=== PATIENT | female | born 1960 | race Caucasian/White ===

== ENCOUNTER → 2024-06-16 | Outpatient (CLI) | payer BC, SELFPAY ==
[2024-06-16 11:17] LABS: Cardiac Risk Estimate 4.1 RATIO (3.7-5.6); Cholesterol 278 mg/dL (132-200); HDL Cholesterol 68 mg/dL (40-60); LDL Cholesterol,Calculated 183 mg/dL (0-130); Triglycerides 135 mg/dL (30-150)
== END | disposition home or self-care (01) ==
PROVIDERS: PCP Family Medicine; Referring Provider Family Medicine; Visit Provider Family Medicine
DX: E78.2 Mixed hyperlipidemia (principal)
CPT/HCPCS: 36415; 80061

== ENCOUNTER → 2024-06-28 | Outpatient (CLI) | payer BC, SELFPAY ==
--- NOTE | 2024-06-28 09:30 | XR_ITS ---
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
--- NOTE | 2024-06-28 10:00 | XR_ITS ---
Examination: Screening digital mammography, bilateral Computer aided detection 3-D breast Tomosynthesis, bilateral Date and time of exam: June 28, 2024 0946 hours No priors Indication: Screening Technique: Nonmagnified MLO, CC views of the breasts to been obtained, reconstructed from 3-D Tomosynthesis images. R2 computer aided detection program utilized for evaluation of suspicious masses and/or abnormal calcifications. 3-D Tomosynthesis images obtained. Findings: Scattered areas of fibroglandular density Benign calcifications No suspicious masses Impression: BI-RADS category II: Benign Findings. Recommend 1 year follow-up mammogram.
== END ==
PROVIDERS: PCP Family Medicine; Referring Provider Family Medicine; Visit Provider Family Medicine
DX: Z12.31 Encounter for screening mammogram for malignant neoplasm of breast (principal); R92.323 Mammographic fibroglandular density, bilateral breasts; R92.1 Mammographic calcification found on diagnostic imaging of breast; E04.2 Nontoxic multinodular goiter
CPT/HCPCS: 76536; 77063; 77067

== ENCOUNTER → 2024-08-09 | Outpatient (CLI) | payer MEDICARE, SELFPAY ==
--- NOTE | 2024-08-09 12:20 | XR_ITS ---
Examination: Bone densitometry Date and time of exam:August 09, 2024 at 1209 hours INDICATIONS: Menopause age 49, family history, mother, osteoporosis vitamin D 2 years Technique: Lumbar spine and hip total bone mineralization values of an calculated. Peak reference and age match control results have been displayed. Findings: Lumbar spine total bone mineralization is1.186 gm/cm2. This is 1.3 standard deviations above peak reference. This is 3.0 standard deviations above age-matched controls. Hip total bone mineralization is 1.127 gm/cm2 This is 1.5 standard deviations above peak reference. This is 2.7 standard deviations above age-matched controls Impression: There is normal mineralization based on lumbar spine measurements. There is normal mineralization based on hip measurements
== END | disposition home or self-care (01) ==
LOC: CDIM 11:42
PROVIDERS: PCP Family Medicine; Referring Provider Family Medicine; Visit Provider Family Medicine
DX: M81.0 Age-related osteoporosis without current pathological fracture (principal)
CPT/HCPCS: 77080

== ENCOUNTER → 2024-09-13 | Outpatient (CLI) | payer MEDICARE, SELFPAY ==
[2024-09-13 17:17] LABS: T4 (Thyroxine) 6.4 mcg/dL (4.5-10.9)
[2024-09-13 17:19] LABS: Cardiac Risk Estimate 2.8 RATIO (3.7-5.6); Cholesterol 228 mg/dL (132-200); HDL Cholesterol 81 mg/dL (40-60); LDL Cholesterol,Calculated 130 mg/dL (0-130); Thyroid Stimulating Hormone 6.95 uIU/mL (0.55-4.78); Triglycerides 87 mg/dL (30-150)
== END | disposition home or self-care (01) ==
LOC: COPL 15:15
PROVIDERS: PCP Family Medicine; Referring Provider Family Medicine; Visit Provider Family Medicine
DX: E78.2 Mixed hyperlipidemia (principal); E05.00 Thyrotoxicosis with diffuse goiter without thyrotoxic crisis or storm
CPT/HCPCS: 36415; 80061; 84436; 84443

== ENCOUNTER → 2024-09-26 | Outpatient (CLI) | payer MEDICARE, SELFPAY ==
--- NOTE | 2024-09-26 | XR_ITS ---
Examination: AP knees bilateral single view AP, lateral, axial right knee 3 views Technique: Bilateral AP knees standing single view Standing AP lateral axial right knee 3 views total 4 views Exam date and time: September 26, 2024 0753 hrs. Indications: Right knee pain beginning several years ago Findings: Moderate narrowing medial joint space left knee Moderate to advanced tricompartment osteoarthritis right knee No patellar dislocation No fracture Small right knee effusion Impression: Moderate narrowing medial joint space left knee Moderate to advanced tricompartment osteoarthritis right knee
== END | disposition home or self-care (01) ==
PROVIDERS: PCP Family Medicine; Referring Provider Orthopaedic Surgery Adult Reconstructive Orthopaedic Surgery; Visit Provider Orthopaedic Surgery Adult Reconstructive Orthopaedic Surgery
DX: M17.11 Unilateral primary osteoarthritis, right knee (principal); M25.862 Other specified joint disorders, left knee
CPT/HCPCS: 73564

== ENCOUNTER 2024-10-04 09:51 | Day surgery (SDC) | payer MEDICARE, SELFPAY ==
[2024-09-29 10:31] VITALS: BMI 39.1
--- NOTE | 2024-10-03 07:00 | EKG_ITS ---
[facility] Test Date: 2024-10-03 Pat Name: MORALES ROONEY Department: Room: - Gender: Female Senior Net Application Developer: [email or web address] : 1960 Requested By: Cecile Underwood Order Number: [id number] Reading MD: Cecile Underwood Measurements Intervals Walsh Rate: 58 P: 46 NC: 159 QRS: 7 QRSD: 109 T: 19 QT: 411 QTc: 406 Interpretive Statements SINUS BRADYCARDIA Compared to ECG 11/27/2023 02:22:40 Atrial fibrillation no longer present ST (T wave) deviation no longer present /store/S0/[id number]/ecg/[id number].pdf
[2024-10-03 11:55] LABS: Basophils # (Auto) 0.1 Thou/mm3 (0.0-0.2); Basophils % (Auto) 1 % (0-2.5); Eosinophils # (Auto) 0.2 Thou/mm3 (0.0-0.5); Eosinophils % (Auto) 4 % (0-10); Hematocrit 43.6 % (36.0-46.0); Hemoglobin 14.5 g/dL (12.0-16.0); Immature Granulocytes % (Auto) 0 % (0-0); Immature Granulocytes Auto 0.01 Thou/mm3 (0.00-0.00); Lymphocytes % (Auto) 37 % (10-50); Mean Corpuscular HGB Conc 33.3 g/dl (31.0-37.0); Mean Corpuscular Hemoglobin 30.6 pg (25.0-35.0); Mean Corpuscular Volume 92 fL (80-100); Monocytes # (Auto) 0.3 Thou/mm3 (0.0-0.8); Monocytes % (Auto) 6 % (0-12); Neutrophils # (Auto) 2.8 Thou/mm3 (1.8-7.7); Neutrophils % (Auto) 52 % (37-80); Nucleated Red Blood Cell % 0 /100 WBC (0); Platelet Count 216 Thou/mm3 (140-440); RDW Standard Deviation 44.5 fL (36.4-46.3); Red Blood Count 4.74 Miln/mm3 (4.00-5.20); White Blood Count 5.4 Thou/mm3 (3.6-11.0)
[2024-10-03 12:02] LABS: INR 0.9 (0.9-1.3); Partial Thromboplastin Time 27.4 Seconds (22.0-36.0); Prothrombin Time 10.4 Seconds (9.0-12.2)
[2024-10-03 12:06] LABS: Anion Gap 9 (7-16); BUN/Creatinine Ratio 20 Ratio (12-20); Blood Urea Nitrogen 16 mg/dL (9-23); Calcium 9.8 mg/dL (8.3-10.6); Carbon Dioxide 24.1 mMol/L (20.0-31.0); Chloride 108 mMol/L (98-107); Creatinine (Component) 0.8 mg/dL (0.6-1.3); Glucose 88 mg/dL (74-106); Osmolality,Calculated 281 (275-295); Potassium 4.7 mMol/L (3.4-5.1); Sodium 141 mMol/L (136-145); eGFR > 60 See Note
[2024-10-04] VITALS (14 sets, daily range): BP systolic 105–149; BP diastolic 65–94; PULSE 57–79; RESP 13–20; TEMP 36.1–36.9; O2SAT 92–96; BMI 41.5
[2024-10-04] MEDS: SODIUM CHLORIDE 0.9% 100 ML IV (12:15)
--- NOTE | 2024-10-04 14:06 | ESOP_ITS ---
RE: MORALES ROONEY : 1960 DATE OF OPERATION: 10/04/2024 PROCEDURE PERFORMED: 1. Diagnostic left heart cardiac catheterization, selective coronary angiogram and left ventricular angiogram, CPT 75760. 2. Conscious sedation, 30 minute duration. 3. Ultrasound-guided access, right radial artery. DIAGNOSES: Coronary artery disease, abnormal stress test, atrial fibrillation, and Graves' disease. HISTORY AND INDICATIONS: The patient is a 64-year-old female with a history of multinodular hypertension, hyperthyroidism, Graves' disease, AFib with RVR, history of previous stroke on anticoagulation and has been doing well until recently. She has had recurrent chest tightness, shortness of breath. Coronary angiogram was recommended because of abnormal nuclear stress test. DESCRIPTION OF PROCEDURE: The patient was brought to cardiac catheterization laboratory. She was given to conscious sedation 2 mg Versed and 100 mcg of fentanyl sedation. Right radial approach was taken. Right radial artery cannulated with micropuncture technique. A 6-Honduran [place] sheath was introduced. Selective right and left heart cardiac catheterization performed by TIG-4 diagnostic catheter. Left heart catheterization and LV angiogram performed by TIG-4 diagnostic catheter. Cardiac catheter showed following findings. Hemodynamics: Left ventricular pressure 110/10. Aortic pressure 110/70. No gradient across the aortic valve. Left ventricular angiogram showed normal left ventricular wall motion, ejection fraction 70%. Coronary angiogram showed following findings. Right coronary artery is large and dominant, appeared normal. PDA and PL branch is normal. Left coronary system. Left main coronary artery is normal. Left anterior descending artery is normal. Circumflex artery is normal. SUMMARY AND FINDINGS: 1. Normal, nonobstructive epicardial coronary arteries. 2. Normal left ventricular systolic function, ejection fraction 70%. RECOMMENDATIONS: The patient will be reassured about the absence of significant obstructive coronary artery disease with excellent prognosis. Recommend continued medical management. Prognosis is excellent. DT: 13:31:59 TT: 14:04:00 Ref: [id number] - TID: [id number]
--- NOTE | 2024-10-04 15:23 | PC.NURSE ---
1253 patient is awake, alert, breathing unlabored, s/p LHC by Dr. Mejias, TR band to right wrist, no bleeding or hematoma noted, report received from harley ELIZALDE, patient to recover for 3hrs and resume eliquis tomorrow. 1405 Tr band removed, no bleeding or hematoma noted. 1517 patient is awake, alert, breathing unlabored, dressing dry with no bleeding or hematoma, patient able to ambulate to bathroom and void, meets discharge criteria, discharge instructions given to patient and family, patient discharted home in wheelchair with all belongings.
== END 2024-10-04 15:17 | disposition home or self-care (01) ==
PROVIDERS: PCP Family Medicine; Referring Provider Internal Medicine Cardiovascular Disease; Visit Provider Internal Medicine Cardiovascular Disease
PROC: (CPT 93458; principal; 2024-10-04 11:30)
DX: I25.118 Atherosclerotic heart disease of native coronary artery with other forms of angina pectoris (principal); E05.00 Thyrotoxicosis with diffuse goiter without thyrotoxic crisis or storm; I10 Essential (primary) hypertension; I48.91 Unspecified atrial fibrillation; Z86.73 Personal history of transient ischemic attack (TIA), and cerebral infarction without residual deficits; Z01.810 Encounter for preprocedural cardiovascular examination
CPT/HCPCS: 93458; 36415; 80048; 85025; 85610; 85730; 93005; 99152; 99153; A4649; C1769; C1887; C1894; J0171; J0461; J1643; J2250; J2310; J2371; J3010; J3490; J7030; Q9967; J2305

== ENCOUNTER → 2024-10-13 | Outpatient (CLI) | payer MEDICARE, SELFPAY ==
[2024-10-13 13:34] LABS: Free T4 (Free Thyroxine) 1.06 ng/dL (0.89-1.76); Thyroid Stimulating Hormone 5.69 uIU/mL (0.55-4.78)
== END | disposition home or self-care (01) ==
LOC: COPL 12:18
PROVIDERS: PCP Family Medicine; Referring Provider Family Medicine; Visit Provider Family Medicine
DX: E05.90 Thyrotoxicosis, unspecified without thyrotoxic crisis or storm (principal)
CPT/HCPCS: 36415; 84439; 84443

== ENCOUNTER 2024-11-01 09:53 | Outpatient (AMB) | payer MEDICARE, SELFPAY ==
[2024-11-01 10:06] VITALS: BP 119/67; PULSE 74; RESP 18; TEMP 36.6; O2SAT 92; BMI 40.6
--- NOTE | 2024-11-01 10:06 | ORTHONT_ITS ---
Vital signs 11/01/24 10:06 Height 1.63 m Height Method Stated Weight 107.558 kg Weight Measurement Method Standing Scale BMI 40.6 BP 119/67 Blood Pressure Source Automatic Cuff Blood Pressure Location Left Upper Arm Position Sitting Respiration 18 Pulse 74 Pulse Source Monitor Temp 97.8 F Temp Source Temporal Artery Scan Pulse Oximetry (%) 92 L Oxygen Delivery Method Room Air Med/Allergies Allergies & Medications Allergies No Known Allergies Allergy (Verified 11/01/24 10:07) Medication Reconciliation diltiazem HCl 120 mg capsule,extended release 24 hr (Cardizem CD) 120 mg PO QAM #14 caps 11/27/23 [Rx Confirmed 11/01/24] apixaban 5 mg PO BID 10/04/24 [History Confirmed 11/01/24] Held on 10/04/24. Instructions: Resume on 10/05/24. please Resume eliquis 10/05/24 as directed. ezetimibe 10 mg tablet 10 mg PO QDAY 10/04/24 [History Confirmed 11/01/24] methimazole 5 mg tablet 5 mg PO BID 10/04/24 [History Confirmed 11/01/24] meloxicam 7.5 mg tablet 7.5 mg PO QDAY #45 tabs 11/01/24 [Rx] Exam Exam Breathing is nonlabored. Patient has a normal mood and affect. Bilateral extremities were evaluated and demonstrates sensation intact to light touch. Palpable pedal pulses are present. No significant edema is present. Bilateral hips were examined. The patient has no pain with log roll of the hips. Internal rotation to 30 degrees and external rotation to 30 degrees is painless. Negative FADIR. Left knee was examined today. The left knee is in reasonable alignment. Range of motion from 0-120 degrees. Knee is stable to varus and valgus as well as AP translation with <5mm. Patient has a negative McMurrays. There is no pain with patellofemoral compression and no crepitus noted. The knee is nontender to palpation. The right knee was also examined. The right knee is in varus alignment. Range of motion from 0-115 degrees. Knee is stable to varus and valgus as well as AP translation with <5mm. Patient has a negative McMurrays. There is no pain with patellofemoral compression and no crepitus noted. The knee is tender to palpation medially. X-rays demonstrate mild to moderate arthritis Assessment and Plan Problem List (1) Arthritis of knee, right: Status: Acute Plan: Patient is a pleasant 64-year-old female with right knee pain and right knee arthritis. We discussed different treatment options. She has mild to moderate arthritis we recommend anti-inflammatories for now. We discussed we can do injections if the pain were to worse Advanced Care Planning Discussion Advance care planning discussed with:: patient Office Procedures GNS Level of Care Nursing/Assessment Patient Status: Initial/New Patient Nursing Assessment/Reassesment: Medication Reconciliation, Update PMH in EMR and Vital Signs Coordination of Care: Complex Care and Chronic Disease 1-5, Education Complex Pt/Fam, Consent,records obtained, informed consent, 1 Ins Authorization, Lab and Imaging orders, Results/Orders obtained and Staff clarify orders New Patient Charge New Patient Point Assignment: 1124 New Patient Point Charge: ENGINE TEST CELL TECHNICIAN Level 4 ([id number]) MA Intake Visit Data Collection New Patient or Established: New Patient (never been to [facility]) Reason for Visit:: RIGHT KNEE PAIN Seen by Clinical Staff ONLY (RN/MA): No PCP or OBGYN visit in last 3 months: Yes Hx Now: No Do You Feel Safe at Home: Yes Authorities Contacted: N/A Questionairres Past Medical History Past Medical History Have you ever been diagnosed with any of the following: Neurological Problems Cerebrovascular Accident (CVA): Yes (2017 Right side fingers numb and right side mouth numbness) Cardiology Problems Atrial Fibrillation: No (hospitalized for a fib but ruled out) Congestive Heart Failure: No Respiratory Problems Chronic Obstructive Pulmonary Disease (COPD): No Asthma: Yes (over 10 years) Smoking: No Smoking Cessation Counseling: No Smoking Exposure: No Genital/Urinary Problems Renal Disease: No Kidney Stones: Yes (over 10 years ago) Endocrine Problems Diabetes Mellitus Type 1: No Diabetes Mellitus Type 2: No Hyperthyroidism: Yes Other Problems Blood Transfusions: No Anesthesia Reactions: No Subjective Visit Visit for: new patient and knee (RIGHT) Immunization / Flu Flu Vaccine in the Last 12 Months: No Flu Vaccine Exclusion Criteria: Refused by Patient History of Present Illness Chief complaint: Right knee pain Monisha is a pleasant 64-year-old female with right knee and right knee arthritis. This has been ongoing for quite a while. It is intermittent. The pain has actually resolved Recently. She takes ibuprofen has not had any injections Pain Pain level (0-10): 0 Pain location: posterior Associated signs & symptoms: none Ambulatory data Ambulatory device: none Treatments Improvement with previous injections: No Improvement with PT: No Improvement with NSAIDS: no Review of Systems Review of Systems: All systems negative unless otherwise noted in HPI.
== END 2024-11-01 10:27 | disposition home or self-care (01) ==
LOC: HODSRG 09:53
PROVIDERS: PCP Family Medicine; Referring Provider Family Medicine; Supervising Provider Orthopaedic Surgery Adult Reconstructive Orthopaedic Surgery; Visit Provider Orthopaedic Surgery Adult Reconstructive Orthopaedic Surgery
DX: M17.11 Unilateral primary osteoarthritis, right knee (principal); M25.561 Pain in right knee; Z86.73 Personal history of transient ischemic attack (TIA), and cerebral infarction without residual deficits
CPT/HCPCS: 99204; G0463

== ENCOUNTER 2025-01-03 13:46 | Outpatient (AMB) | payer MEDICARE, SELFPAY ==
[2025-01-03 13:55] VITALS: BP 137/84; PULSE 75; RESP 18; TEMP 36.4; O2SAT 96; BMI 40.0
--- NOTE | 2025-01-03 13:55 | PD.ORTHCLVIS ---
Vital signs 01/03/25 13:55 Height 1.63 m Height Method Stated Weight 106.339 kg Weight Measurement Method Standing Scale BMI 40.0 BP 137/84 H Blood Pressure Source Automatic Cuff Blood Pressure Location Right Upper Arm Position Sitting Respiration 18 Pulse 75 Pulse Source Monitor Temp 97.6 F Temp Source Temporal Artery Scan Pulse Oximetry (%) 96 Oxygen Delivery Method Room Air Med/Allergies Allergies & Medications Allergies No Known Allergies Allergy (Verified 01/03/25 13:56) Medication Reconciliation diltiazem HCl 120 mg capsule,extended release 24 hr (Cardizem CD) 120 mg PO QAM #14 caps 11/27/23 [Rx Confirmed 01/03/25] apixaban 5 mg PO BID 10/04/24 [History Confirmed 01/03/25] Held on 10/04/24. Instructions: Resume on 10/05/24. please Resume eliquis 10/05/24 as directed. ezetimibe 10 mg tablet 10 mg PO QDAY 10/04/24 [History Confirmed 01/03/25] methimazole 5 mg tablet 5 mg PO BID 10/04/24 [History Confirmed 01/03/25] meloxicam 7.5 mg tablet 7.5 mg PO QDAY #45 tabs 11/01/24 [Rx Confirmed 01/03/25] Exam Exam Breathing is nonlabored. Patient has a normal mood and affect. Bilateral extremities were evaluated and demonstrates sensation intact to light touch. Palpable pedal pulses are present. No significant edema is present. Bilateral hips were examined. The patient has no pain with log roll of the hips. Internal rotation to 30 degrees and external rotation to 30 degrees is painless. Negative FADIR. Left knee was examined today. The left knee is in reasonable alignment. Range of motion from 0-120 degrees. Knee is stable to varus and valgus as well as AP translation with <5mm. Patient has a negative McMurrays. There is no pain with patellofemoral compression and no crepitus noted. The knee is nontender to palpation. The right knee was also examined. The right knee is in varus alignment. Range of motion from 0-115 degrees. Knee is stable to varus and valgus as well as AP translation with <5mm. Patient has a negative McMurrays. There is no pain with patellofemoral compression and no crepitus noted. The knee is tender to palpation medially. X-rays demonstrate mild to moderate arthritis Assessment and Plan Problem List (1) Arthritis of knee, right: Status: Acute Plan: Patient is a pleasant 64-year-old female with right knee pain and right knee arthritis. We discussed different treatment options. She has mild to moderate arthritis we recommend anti-inflammatories for now. She would also like to try a cortisone injection today Recommend knee cortisone injection as patient would like to proceed with conservative treatment at this time. The risks and benefits of the procedure were reviewed with the patient and patient gave verbal consent to continue with the procedure. Procedure: performed by Dr. Wray Using sterile technique the Right knee was thoroughly prepped with alcohol, and approximately 1 cc of Kenalog 40 mg/mL and 4 cc of 1% lidocaine was injected without resistance into the medial tibial femoral joint space. The patient tolerated the procedure. Advanced Care Planning Discussion Advance care planning discussed with:: patient Office Procedures GNS Level of Care Nursing/Assessment Patient Status: Established Patient Nursing Assessment/Reassesment: Medication Reconciliation, Update PMH in EMR and Vital Signs Coordination of Care: Complex Care and Chronic Disease 1-5, Education Complex Pt/Fam, Consent,records obtained, informed consent, Results/Orders obtained and Staff clarify orders Established Patient Charge Established Patient Point Assignment: 95 Established Patient Point Charge: EP Level 3 (80-115) Surgical Proc/IM SQ injection Major Surgical Procedure: Yes (KNEE INJECTION ) MA Intake Visit Data Collection New Patient or Established: Established Patient (seen at [facility] within 3 years) Reason for Visit:: KNEE INJECTIONS Seen by Clinical Staff ONLY (RN/MA): No Verbal consent obtained for Telemed visit?: No Forestry Support Specialist Required: No PCP or OBGYN visit in last 3 months: Yes Hx Now: No Do You Feel Safe at Home: Yes Authorities Contacted: N/A Questionairres Past Medical History Past Medical History Have you ever been diagnosed with any of the following: Neurological Problems Cerebrovascular Accident (CVA): Yes (2018 Right side fingers numb and right side mouth numbness) Cardiology Problems Atrial Fibrillation: No (hospitalized for a fib but ruled out) Congestive Heart Failure: No Respiratory Problems Chronic Obstructive Pulmonary Disease (COPD): No Asthma: Yes (over 10 years) Smoking: No Smoking Cessation Counseling: No Smoking Exposure: No Genital/Urinary Problems Renal Disease: No Kidney Stones: Yes (over 10 years ago) Endocrine Problems Diabetes Mellitus Type 1: No Diabetes Mellitus Type 2: No Hyperthyroidism: Yes Other Problems Blood Transfusions: No Anesthesia Reactions: No Subjective Visit Visit for: follow up visit and knee Immunization / Flu Flu Vaccine in the Last 12 Months: No Flu Vaccine Exclusion Criteria: No Exclusion Criteria History of Present Illness Chief complaint: KNEE INJECTION Monisha is a pleasant 64-year-old female with right knee and right knee arthritis. This has been ongoing for quite a while. She would like a right knee injection today Personal History Red flag PMH: BMI BMI Counceling provided: Yes Pain Pain level (0-10): 4 Pain duration: ALL DAY Pain location: anterior and posterior Pain quality: sharp, dull and aching Pain timing: increases with activity Associated signs & symptoms: none Ambulatory data Ambulatory device: none Treatments Improvement with previous injections: Yes Improvement with PT: No Improvement with NSAIDS: no Review of Systems Review of Systems: All systems negative unless otherwise noted in HPI.
== END 2025-01-03 14:04 | disposition home or self-care (01) ==
LOC: HODSRG 13:46
PROVIDERS: PCP Family Medicine; Referring Provider Family Medicine; Supervising Provider Orthopaedic Surgery Adult Reconstructive Orthopaedic Surgery; Visit Provider Orthopaedic Surgery Adult Reconstructive Orthopaedic Surgery
DX: M17.11 Unilateral primary osteoarthritis, right knee (principal); M25.561 Pain in right knee; Z86.73 Personal history of transient ischemic attack (TIA), and cerebral infarction without residual deficits
CPT/HCPCS: 20610; 99213; J3301; J3490; G0463

== ENCOUNTER → 2025-01-31 | Outpatient (CLI) | payer MEDICARE, SELFPAY ==
[2025-01-31 12:12] LABS: Free T4 (Free Thyroxine) 1.25 ng/dL (0.89-1.76); Thyroid Stimulating Hormone 2.25 uIU/mL (0.55-4.78)
== END | disposition home or self-care (01) ==
LOC: COPL 11:21
PROVIDERS: PCP Family Medicine; Referring Provider Family Medicine; Visit Provider Family Medicine
DX: E05.90 Thyrotoxicosis, unspecified without thyrotoxic crisis or storm (principal)
CPT/HCPCS: 36415; 84439; 84443

== ENCOUNTER 2025-03-23 07:58 | Outpatient (AMB) | payer MEDICARE, SELFPAY ==
--- NOTE | 2025-03-23 08:08 | PD.ORTHCLVIS ---
Vital signs 03/23/25 08:09 Height 1.63 m Height Method Stated Weight 112.066 kg Weight Measurement Method Standing Scale BMI 42.1 BP 119/78 Blood Pressure Source Automatic Cuff Blood Pressure Location Left Upper Arm Position Sitting Respiration 18 Pulse 72 Pulse Source Monitor Temp 97.5 F Temp Source Temporal Artery Scan Pulse Oximetry (%) 95 Oxygen Delivery Method Room Air Med/Allergies Allergies & Medications Allergies No Known Allergies Allergy (Verified 03/23/25 08:10) Medication Reconciliation diltiazem HCl 120 mg capsule,extended release 24 hr (Cardizem CD) 120 mg PO QAM #14 caps 11/27/23 [Rx Confirmed 03/23/25] apixaban 5 mg PO BID 10/04/24 [History Confirmed 03/23/25] Held on 10/04/24. Instructions: Resume on 10/05/24. please Resume eliquis 10/05/24 as directed. ezetimibe 10 mg tablet 10 mg PO QDAY 10/04/24 [History Confirmed 03/23/25] methimazole 5 mg tablet 5 mg PO BID 10/04/24 [History Confirmed 03/23/25] meloxicam 7.5 mg tablet 7.5 mg PO QDAY #45 tabs 03/23/25 [Rx] Exam Exam Breathing is nonlabored. Patient has a normal mood and affect. Bilateral extremities were evaluated and demonstrates sensation intact to light touch. Palpable pedal pulses are present. No significant edema is present. Bilateral hips were examined. The patient has no pain with log roll of the hips. Internal rotation to 30 degrees and external rotation to 30 degrees is painless. Negative FADIR. Left knee was examined today. The left knee is in reasonable alignment. Range of motion from 0-120 degrees. Knee is stable to varus and valgus as well as AP translation with <5mm. Patient has a negative McMurrays. There is no pain with patellofemoral compression and no crepitus noted. The knee is nontender to palpation. The right knee was also examined. The right knee is in varus alignment. Range of motion from 0-115 degrees. Knee is stable to varus and valgus as well as AP translation with <5mm. Patient has a negative McMurrays. There is no pain with patellofemoral compression and no crepitus noted. The knee is tender to palpation medially. X-rays demonstrate mild to moderate arthritis Assessment and Plan Problem List (1) Arthritis of knee, right: Status: Acute Plan: Patient is a pleasant 64-year-old female with right knee pain and right knee arthritis. We discussed different treatment options. She has mild to moderate arthritis we recommend anti-inflammatories for now. She would also like to try a cortisone injection today Recommend knee hyaluronic acid injection as patient would like to proceed with conservative treatment at this time. The risks and benefits of the procedure were reviewed with the patient and patient gave verbal consent to continue with the procedure. Procedure: performed by Dr. Wray Using sterile technique the Right knee was thoroughly prepped with alcohol, and the entire syringe of Synvisc 1 was injected without resistance into the medial tibial femoral joint space. The patient tolerated the procedure. Advanced Care Planning Discussion Advance care planning discussed with:: patient Office Procedures GNS Level of Care Nursing/Assessment Patient Status: Established Patient Nursing Assessment/Reassesment: Medication Reconciliation, Update PMH in EMR and Vital Signs Coordination of Care: Complex Care and Chronic Disease 1-5, Education Complex Pt/Fam, Consent,records obtained, informed consent, Results/Orders obtained and Staff clarify orders Established Patient Charge Established Patient Point Assignment: 95 Established Patient Point Charge: EP Level 3 (80-115) Surgical Proc/IM SQ injection Major Surgical Procedure: Yes (KNEE INJECTION ) Medication Given Medication Given Medication Given: Yes Documented Dose Given: 1 Route: Infiitration Office Meds Hyalgan 10 mg/mL intra-articular syringe Performing Provider: Fox Wray MD Performing Location: [facility] Administered by: Fox Wray MD on 03/23/25 08:50 Dose Route Admin Location Dispensed Lot Number Expiration Date [facility] Senior Hadoop Developer 20 mg intra-articular KNEE 20 mL [id number] 10/01/27 [id number] MA Intake Visit Data Collection New Patient or Established: Established Patient (seen at [facility] within 3 years) Reason for Visit:: RIGHT KNEE PAIN INJ 01/2025 Seen by Clinical Staff ONLY (RN/MA): No Verbal consent obtained for Telemed visit?: No Reading Professor Required: No PCP or OBGYN visit in last 3 months: Yes Hx Now: No Do You Feel Safe at Home: Yes Authorities Contacted: N/A Questionairres Past Medical History Past Medical History Have you ever been diagnosed with any of the following: Neurological Problems Cerebrovascular Accident (CVA): Yes (2018 Right side fingers numb and right side mouth numbness) Cardiology Problems Atrial Fibrillation: No (hospitalized for a fib but ruled out) Congestive Heart Failure: No Respiratory Problems Chronic Obstructive Pulmonary Disease (COPD): No Asthma: Yes (over 10 years) Smoking: No Smoking Cessation Counseling: No Smoking Exposure: No Stomache/Intestinal Problems Liver Cancer: No Hepatitis: No Cirrhosis: No Pancreatic Cancer: No Pancreatitis: No Celiac Disease: No Gall Bladder Disease: No Gastrointestinal Bleed: No Esophageal Varices: No Cordero's Esophagus: No Colitis: No Ulcerative Colitis: No Diverticulitis: No Diverticulosis: No Ulcer: No Colorectal Cancer: No Irritable Bowel: No Crohn's Disease: No Obstructive Bowel: No Hiatal Hernia: No Hemorrhoids: No Gastroesophageal Reflux Disease: No Polyps: No Obesity: No Genital/Urinary Problems Chronic Kidney Disease: No Renal Disease: No Kidney Stones: Yes (over 10 years ago) Polycystic Kidney Disease: No Neurogenic Bladder: No Inguinal Hernia: No Dialysis: No Reproductive Problems Breast Cancer: No Endometriosis: No Fibroids: No Genital Herpes: No Gonorrhea: No Pelvic Inflammatory Disease: No Polycystic Ovarian Syndrome: No Previous Pregnancies: No Syphilis: No Uterine Prolapse: No Musculoskeletal Problems Muscular Dystrophy: No Myasthenia Gravis: No Marfan's Syndrome: No Bone Cancer: No Arthritis: No Rheumatoid Arthritis: No Osteoporosis: No Degenerative Disk Disease: No Gout: No Scoliosis: No Carpal Tunnel Syndrome: No Fibromyalgia: No Fractures: No Degenerative Joint Disease: No Osteomyelitis: No Poliovirus: No Head,Eye,Nose,Throat Problems Cataracts: No Glaucoma: No Blind: No Retinal Detachment: No Macular Degeneration: No Chronic Ear Infections: No Deafness: No Eye Prosthesis: No Endocrine Problems Diabetes Mellitus Type 1: No Diabetes Mellitus Type 2: No Hypoglycemia: No Lora's Syndrome: No Morris's Disease: No Hyperthyroidism: Yes Hypothyroidism: No Thyroid Cancer: No Parathyroid Disease: No Pituitary Disease: No Systemic Lupus Erythematosus: No Syndrome of Inappropriate Antidiuretic Hormone: No Adrenal Disease: No Graves' Disease: No Blood Problems Anemia: No Leukemia: No Hemophilia: No Thalassemia: No Sickle Cell Disease: No Clotting Problems: No Psychologic Problems Schizophrenia: No Recreational Drug Use: No Bipolar Disorder: No Depression: No Anxiety: No Behavior Problems: No Self-Mutilation: No Attention Deficit Disorder: No Attention Deficit Hyperactivity Disorder: No Depression: No Post Traumatic Stress Disorder: No Eating Disorder: No Other Problems Blood Transfusions: No Anesthesia Reactions: No Subjective Visit Visit for: follow up visit, knee and injections Immunization / Flu Flu Vaccine in the Last 12 Months: No Flu Vaccine Exclusion Criteria: No Exclusion Criteria History of Present Illness Chief complaint: RIGHT KNEE PAIN Monisha is a pleasant 64-year-old female with right knee and right knee arthritis. This has been ongoing for quite a while. The last injection only provided short-term relief. Will try different injection today. She would like to try hyaluronic acid injection. Personal History Red flag PMH: BMI BMI Counceling provided: Yes Pain Pain level (0-10): 6 Pain duration: ALL DAY Pain location: anterior and posterior Pain quality: sharp, dull and aching Pain timing: increases with activity Associated signs & symptoms: none Ambulatory data Ambulatory device: none Treatments Number of previous injections: 1 Improvement with previous injections: No Improvement with PT: No Improvement with NSAIDS: no Review of Systems Review of Systems: All systems negative unless otherwise noted in HPI.
[2025-03-23 08:09] VITALS: BP 119/78; PULSE 72; RESP 18; TEMP 36.4; O2SAT 95; BMI 42.1
== END 2025-03-23 08:39 | disposition home or self-care (01) ==
LOC: HODSRG 07:58
PROVIDERS: PCP Family Medicine; Referring Provider Family Medicine; Supervising Provider Orthopaedic Surgery Adult Reconstructive Orthopaedic Surgery; Visit Provider Orthopaedic Surgery Adult Reconstructive Orthopaedic Surgery
DX: M17.11 Unilateral primary osteoarthritis, right knee (principal); M25.561 Pain in right knee; Z86.73 Personal history of transient ischemic attack (TIA), and cerebral infarction without residual deficits; Z87.442 Personal history of urinary calculi
CPT/HCPCS: 20610; 99213; G0463; J7325

== ENCOUNTER 2025-04-12 08:50 | Day surgery (SDC) | payer MEDICARE, SELFPAY ==
[2025-04-12] VITALS (9 sets, daily range): BP systolic 104–143; BP diastolic 59–85; PULSE 68–88; RESP 13–20; TEMP 36.2; O2SAT 95–98; BMI 40.1
[2025-04-12] MEDS: SODIUM CHLORIDE 0.9% 500 ML 500 ML 20 ML IV (10:11)
[2025-04-12] MEDS: MIDAZOLAM INJ 1 MG/ML VIAL 2 ML (ASD USE ONLY) 2 MG IVP (10:17)
[2025-04-12] MEDS: fentaNYL CIT INJ 50 mCg/ML AMP 2ML (ASD USE ONLY) IVP (10:17)
== END 2025-04-12 11:05 | disposition home or self-care (01) ==
PROVIDERS: PCP Family Medicine; Referring Provider Specialist; Visit Provider Specialist
PROC: 0DBE8ZX Excision of Large Intestine, Via Natural or Artificial Opening Endoscopic, Diagnostic (ICD-10-PCS; CPT 45380; principal; 2025-04-12 09:45)
DX: Z12.11 Encounter for screening for malignant neoplasm of colon (principal); K64.9 Unspecified hemorrhoids; K57.30 Diverticulosis of large intestine without perforation or abscess without bleeding
CPT/HCPCS: G0121; A4649; J1200; J2250; J3010; J7999

== ENCOUNTER 2025-04-20 07:59 | Outpatient (AMB) | payer MEDICARE, SELFPAY ==
--- NOTE | 2025-04-20 08:10 | ORTHONT_ITS ---
Vital signs 04/20/25 08:15 Height 1.63 m Height Method Measured Weight 107.133 kg Weight Measurement Method Standing Scale BMI 40.3 BP 114/74 Blood Pressure Source Automatic Cuff Blood Pressure Location Left Upper Arm Position Sitting Respiration 20 Pulse 73 Pulse Source Monitor Temp 97.3 F Temp Source Temporal Artery Scan Pulse Oximetry (%) 95 Oxygen Delivery Method Room Air Med/Allergies Allergies & Medications Allergies No Known Allergies Allergy (Verified 04/20/25 08:17) Medication Reconciliation methimazole 5 mg tablet 5 mg PO BID 10/04/24 [History Confirmed 04/20/25] meloxicam 7.5 mg tablet 7.5 mg PO QDAY #45 tabs 03/23/25 [Rx Confirmed 04/20/25] Exam Exam Breathing is nonlabored. Patient has a normal mood and affect. Bilateral extremities were evaluated and demonstrates sensation intact to light touch. Palpable pedal pulses are present. No significant edema is present. Bilateral hips were examined. The patient has no pain with log roll of the hips. Internal rotation to 30 degrees and external rotation to 30 degrees is painless. Negative FADIR. Left knee was examined today. The left knee is in reasonable alignment. Range of motion from 0-120 degrees. Knee is stable to varus and valgus as well as AP translation with <5mm. Patient has a negative McMurrays. There is no pain with patellofemoral compression and no crepitus noted. The knee is nontender to palpation. The right knee was also examined. The right knee is in varus alignment. Range of motion from 0-115 degrees. Knee is stable to varus and valgus as well as AP translation with <5mm. Patient has a negative McMurrays. There is no pain with patellofemoral compression and no crepitus noted. The knee is tender to palpation medially. X-rays demonstrate mild to moderate arthritis Assessment and Plan Problem List (1) Arthritis of knee, right: Status: Acute Plan: Patient is a pleasant 64-year-old female with right knee pain and right knee arthritis. We discussed different treatment options. She has mild to moderate arthritis we recommend anti-inflammatories for now. She is doing well and can see me on as needed basis Advanced Care Planning Discussion Advance care planning discussed with:: patient Office Procedures GNS Level of Care Nursing/Assessment Patient Status: Established Patient Nursing Assessment/Reassesment: Medication Reconciliation, Update PMH in EMR and Vital Signs Coordination of Care: Complex Care and Chronic Disease 1-5, Education Complex Pt/Fam, Consent,records obtained, informed consent, Results/Orders obtained and Staff clarify orders Established Patient Charge Established Patient Point Assignment: 95 Established Patient Point Charge: EP Level 3 (80-115) MA Intake Visit Data Collection New Patient or Established: Established Patient (seen at [facility] within 3 years) Reason for Visit:: RIGHT KNEE GEL INJECTION Seen by Clinical Staff ONLY (RN/MA): No Verbal consent obtained for Telemed visit?: No Type Disk Quality Control Supervisor Required: No PCP or OBGYN visit in last 3 months: Yes Hx Now: No Do You Feel Safe at Home: Yes Authorities Contacted: N/A Questionairres Past Medical History Past Medical History Have you ever been diagnosed with any of the following: Neurological Problems Cerebrovascular Accident (CVA): Yes (2018 Right side fingers numb and right side mouth numbness) Seizures: No Cardiology Problems Cardiac Arrhythmia: Yes Atrial Fibrillation: No (hospitalized for a fib but ruled out, Palpitations) Congestive Heart Failure: No Respiratory Problems Chronic Obstructive Pulmonary Disease (COPD): No Asthma: Yes (over 10 years) Smoking: No Smoking Cessation Counseling: No Smoking Exposure: No Stomache/Intestinal Problems Liver Cancer: No Hepatitis: No Cirrhosis: No Pancreatic Cancer: No Pancreatitis: No Celiac Disease: No Gall Bladder Disease: No Gastrointestinal Bleed: No Esophageal Varices: No Cordero's Esophagus: No Colitis: No Ulcerative Colitis: No Diverticulitis: No Diverticulosis: No Ulcer: No Colorectal Cancer: No Irritable Bowel: No Crohn's Disease: No Obstructive Bowel: No Hiatal Hernia: No Hemorrhoids: No Gastroesophageal Reflux Disease: No Polyps: No Obesity: No Genital/Urinary Problems Chronic Kidney Disease: No Renal Disease: No Kidney Stones: Yes (over 10 years ago) Polycystic Kidney Disease: No Neurogenic Bladder: No Inguinal Hernia: No Dialysis: No Reproductive Problems Breast Cancer: No Endometriosis: No Fibroids: No Genital Herpes: No Gonorrhea: No Pelvic Inflammatory Disease: No Polycystic Ovarian Syndrome: No Previous Pregnancies: No Syphilis: No Uterine Prolapse: No Musculoskeletal Problems Muscular Dystrophy: No Myasthenia Gravis: No Marfan's Syndrome: No Bone Cancer: No Arthritis: Yes (Right knee arthtitis) Rheumatoid Arthritis: No Osteoporosis: No Degenerative Disk Disease: No Gout: No Scoliosis: No Carpal Tunnel Syndrome: No Fibromyalgia: No Fractures: No Degenerative Joint Disease: No Osteomyelitis: No Poliovirus: No Head,Eye,Nose,Throat Problems Cataracts: No Glaucoma: No Blind: No Retinal Detachment: No Macular Degeneration: No Chronic Ear Infections: No Deafness: No Eye Prosthesis: No Endocrine Problems Diabetes Mellitus Type 1: No Diabetes Mellitus Type 2: No Hypoglycemia: No Beverly's Syndrome: No Coldiron's Disease: No Hyperthyroidism: Yes Hypothyroidism: No Thyroid Cancer: No Parathyroid Disease: No Pituitary Disease: No Systemic Lupus Erythematosus: No Syndrome of Inappropriate Antidiuretic Hormone: No Adrenal Disease: No Graves' Disease: No Blood Problems Anemia: No Leukemia: No Hemophilia: No Thalassemia: No Sickle Cell Disease: No Clotting Problems: No Psychologic Problems Schizophrenia: No Recreational Drug Use: No Bipolar Disorder: No Depression: No Anxiety: No Behavior Problems: No Self-Mutilation: No Attention Deficit Disorder: No Attention Deficit Hyperactivity Disorder: No Depression: No Post Traumatic Stress Disorder: No Eating Disorder: No Other Problems Blood Transfusions: No Blood Transfusion Reaction: No Anesthesia Reactions: No Subjective Visit Visit for: follow up visit, knee and injections Immunization / Flu Flu Vaccine in the Last 12 Months: No Flu Vaccine Exclusion Criteria: No Exclusion Criteria History of Present Illness Chief complaint: RIGHT KNEE PAIN Monisha is a pleasant 64-year-old female with right knee and right knee arthritis. This has been ongoing for quite a while. She had great relief with the last hyaluronic acid injection Personal History Red flag PMH: BMI BMI Counceling provided: Yes Pain Pain level (0-10): 0 Pain duration: ALL DAY Pain location: anterior and posterior Pain quality: sharp, dull and aching Pain timing: increases with activity Associated signs & symptoms: none Ambulatory data Ambulatory device: none Treatments Number of previous injections: 2 Improvement with previous injections: Yes Improvement with PT: No Improvement with NSAIDS: no Review of Systems Review of Systems: All systems negative unless otherwise noted in HPI.
[2025-04-20 08:15] VITALS: BP 114/74; PULSE 73; RESP 20; TEMP 36.3; O2SAT 95; BMI 40.3
== END 2025-04-20 08:40 | disposition home or self-care (01) ==
LOC: HODSRG 07:59
PROVIDERS: PCP Family Medicine; Referring Provider Family Medicine; Supervising Provider Orthopaedic Surgery Adult Reconstructive Orthopaedic Surgery; Visit Provider Orthopaedic Surgery Adult Reconstructive Orthopaedic Surgery
DX: M17.11 Unilateral primary osteoarthritis, right knee (principal); M25.561 Pain in right knee; Z86.73 Personal history of transient ischemic attack (TIA), and cerebral infarction without residual deficits; Z87.442 Personal history of urinary calculi
CPT/HCPCS: 99213; G0463

== ENCOUNTER → 2025-05-08 | Outpatient (CLI) | payer MEDICARE, SELFPAY ==
[2025-05-08 12:51] LABS: Anion Gap 11 (7-16); BUN/Creatinine Ratio 11 Ratio (12-20); Blood Urea Nitrogen 8 mg/dL (9-23); Calcium 10.0 mg/dL (8.3-10.6); Carbon Dioxide 25.9 mMol/L (20.0-31.0); Chloride 103 mMol/L (98-107); Creatinine (Component) 0.7 mg/dL (0.6-1.3); Glucose 82 mg/dL (74-106); Osmolality,Calculated 276 (275-295); Potassium 4.0 mMol/L (3.4-5.1); Sodium 140 mMol/L (136-145); Thyroid Stimulating Hormone 2.19 uIU/mL (0.55-4.78); eGFR > 60 See Note
[2025-05-08 12:57] LABS: T4 (Thyroxine) 9.8 mcg/dL (4.5-10.9)
== END | disposition home or self-care (01) ==
PROVIDERS: PCP Family Medicine; Referring Provider Family Medicine; Visit Provider Family Medicine
DX: E05.90 Thyrotoxicosis, unspecified without thyrotoxic crisis or storm (principal)
CPT/HCPCS: 36415; 80048; 84436; 84443